=== PATIENT | male | born 1960 | race Caucasian/White ===

== ENCOUNTER 2017-04-01 14:22 | Inpatient (IN) | payer BC ==
[~2017-04-01] VITALS: Ht 177.8 cm; Wt 186.0 kg
[2017-04-01] VITALS (16 sets, daily range): BP systolic 69–168; BP diastolic 33–83
[~2017-04-01 14:22] MED LIST: ASPI81TA44 PO; CAMPHOR TP; CELE200C PO; FAMO-63 PO; FLUC200T PO; FURO-68 PO; GABA-586 PO; HYDR25CA PO; Hydrocodone Bit/Acetaminophen PO; INSU100I13 SQ; INSU100I17 SQ; LISI-338 PO; MENTHOL TP; METF-620 PO; Mineral Oil/Petrolatum,White TP; PRED5TAB19 PO; PROAIR HFA8.5 GM IH; SIMV80TA3 PO
[2017-04-01] MEDS ORDERED: NOREPINEPHRIN PREMIX 250 ML IV PRN (16:00)
[2017-04-01] MEDS ORDERED: METO2.5T PO (17:24)
[2017-04-01] MEDS ORDERED: GLUC100018 PO (17:24)
[2017-04-01] MEDS ORDERED: CHOL10003 PO (17:24)
[2017-04-01] MEDS ORDERED: SIMV20TA3 PO (17:24)
[2017-04-01] MEDS ORDERED: MULT-658 PO (17:24)
[2017-04-01] MEDS ORDERED: EMPA25TA PO (17:24)
[2017-04-01] MEDS ORDERED: FURO80TA72 PO (17:24)
[2017-04-01] MEDS ORDERED: INSU100I13 SQ (17:24)
[2017-04-01] MEDS ORDERED: VALS320T2 PO (17:24)
[2017-04-01] MEDS ORDERED: OMEG1CAP38 PO (17:24)
[2017-04-01] MEDS ORDERED: MILK175C PO (17:24)
[2017-04-01] MEDS ORDERED: CINN500C2 PO (17:24)
[2017-04-01] MEDS ORDERED: INSU100I17 SQ (17:25)
[2017-04-01] MEDS ORDERED: DEXTROSE 50% 25 GM / 50ML DISP.SYRIN. IV PRN (18:45)
--- NOTE | 2017-04-01 19:41 | HP ---
ADMIT DATE: 04/01/2017 CHIEF COMPLAINT: Confusion, presyncope, slurred speech. HISTORY OF PRESENT ILLNESS: The patient is a 56-year-old morbidly obese gentleman with diabetes, hypertension, and obstructive sleep apnea who presented to the Emergency Room at [facility] after having been found [place] the [facility] [place] with altered mental status. When he arrived in the Emergency Room, blood sugars were actually within normal, but he was found profoundly hypotensive. According to the , who is currently present at bedside, he typically works at night and sleeps on the days. 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 On arrival in the Emergency Room, he was obtunded, did answer to some questions. Further workup revealed a negative CT of the head, normal drug screen and normal electrolytes. He is hypertensive and his dose of losartan had been increased from 180 to 360 about a month ago. The patient is now transferred to the ICU for close monitoring, he requires Levophed at this time. PAST MEDICAL HISTORY: Hypertension; diabetes mellitus, insulin resistant; obstructive sleep apnea. FAMILY HISTORY: Positive for hypertension and heart disease. 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 Quit smoking 15 years ago. No alcohol or drugs. ALLERGIES: No known drug allergies. MEDICATIONS: MAR reviewed and reconciled with home medications. REVIEW OF SYSTEMS: Unable to obtain as the patient is currently fast asleep and very difficult to arouse. Story obtained from . PHYSICAL EXAMINATION: VITAL SIGNS: From today show a blood pressure of 84/42 at admission, pulse of 82, respiratory rate at 14. No fevers. GENERAL: This is a 56-year-old massively obese, gentleman, sleeping soundly, snoring. HEENT: Shows no scleral icterus. Oral mucosa is pink and moist. NECK: Supple, no lymphadenopathy noted. LUNGS: Fairly clear anteriorly. HEART: Regular rate and rhythm. ABDOMEN: Massively obese, soft, nontender. EXTREMITIES: Show 1+ pitting edema bilaterally in the lower extremities. SKIN: Warm, soft and dry without any rash. LABORATORY DATA: CBC with a WBC of 7.1, hemoglobin 13.7, platelets of 126. Differential essentially within normal limits. BUN and creatinine of 18 and 1.7. Essentially normal electrolytes with mildly decreased potassium at 3.4. LFTs within normal limits. Albumin at 3.3. RADIOGRAPHIC FINDINGS: CT of the head without any acute findings. Chest x-ray, no acute abnormality seen. ASSESSMENT AND PLAN: The patient is a 56-year-old gentleman with profound hypotension of unexplained etiology. With all lab tests and radiographic imaging being completely normal, the most likely etiology would be an overdose, probably unintentional of his blood pressure medications. We will hold blood pressure medication for now, continue all other meds. As his blood pressure initially was quite low, he was started on Levophed. We will monitor closely. Repeat kidney function in the morning. His mental status actually completely normalized on arrival at the hospital here. He now is drowsy, most likely secondary to sleep deprivation. Diabetes mellitus is borderline controlled. According to , most recent hemoglobin A1c was 7.8. He is clearly insulin resistant with high doses of Lantus as well as Humalog. We will continue the Lantus and write a high dose sliding scale for him. We will repeat hemoglobin A1c here. Obstructive sleep apnea has been diagnosed. Suspect significant obesity induced hypoventilation involved as well. His pulse ox here have dropped in the low to mid 80s on room air. He will be maintained on oxygen for now. According to , at home on room air at sleep, his pulse ox drops into the upper 80s typically. RELL BUCHANAN MD DR: UR/nts JOB#: [id number] / [id number] SARKIS Oglesby MD MTDD
[2017-04-01] MEDS ORDERED: SIMVASTATIN 20 MG TABLET PO SCH (21:00)
[2017-04-01] MEDS ORDERED: GLUCOSAMINE SULFATE 1500 MG PO SCH (21:00)
[2017-04-01] MEDS: OMEGA-3 FATTY ACIDS/FISH OIL 1,000 MG CAPSULE. PO SCH (21:08)
[2017-04-01] MEDS: GABAPENTIN 300 MG CAPSULE. PO SCH (21:08)
[2017-04-02] VITALS (11 sets, daily range): BP systolic 139–169; BP diastolic 56–92
--- NOTE | 2017-04-02 00:26 | ACF ---
Admission Forms Criteria GENERAL ADMISSION CRITERIA (Place 'X' for any and all applicable criteria): Admission is indicated for ANY ONE of the following: [ ]I. Hemodynamic instability as indicated by ANY ONE of the following(1)(2) (3)(4)(5): [ ]a) Vital sign abnormality not readily corrected by appropriate treatment within 12 to 24 hours indicated by ANY ONE of the following: [ ]i) Hypotension [ ]ii) Symptomatic Tachycardia unresponsive to treatment (eg , analgesia, fluids, sedation as indicated) [ ]iii) Orthostatic vital sign changes unresponsive to treatment (eg, fluids) [ ]b) Vital sign abnormality that is severe indicated by ANY ONE of the following: [ ]i) Inadequate perfusion indicated by ANY ONE of the following: [ ]1) Lactic acidosis (greater than 2 mmol/L) [ ]2) New abnormal capillary refill (greater than 3 seconds) [ ]3) Other metabolic acidosis (arterial pH less than 7.35) not otherwise explained [ ]4) Reduced urine output [ ]5) Altered mental status [ ]6) Myocardial Ischemia [ ]v) Mean arterial pressure[A] less than 60 mm Hg [ ]vi) Mean arterial pressure[A] less than 70 mm Hg after 30 minutes of appropriate treatment (eg, fluid resuscitation) [ ]vii) IV inotropic or vasopressor medication required to maintain adequate blood pressure or perfusion [ ]viii) Sustained heart rate greater than 120 beats per minute in adult or child 6 years or older[B]] [ ]II. Hypertension requiring inpatient treatment as indicated by ANY ONE of the following(6)(7)(8): [ ]a) SBP greater than 220 mm Hg or DBP greater than 120 mm Hg despite treatment [ ]b) SBP greater than 140 mm Hg or DBP greater than 100 mm Hg with evidence of acute end organ damage as indicated by ANY ONE of the following: [ ]i) Encephalopathy [ ]ii) Acute renal failure as indicated by new onset of ANY ONE of the following(9)(10)(11)(12)(13): [ ]1) A 3-fold rise in serum creatinine from baseline [ ]2) Serum creatinine greater than 4 mg/dL ( 354 micromoles/L) with acute rise greater than 0.5 mg/dL (44.2 micromoles/L) [ ]3) Reduction of more than 75% in estimated glomerular filtration rate from baseline [ ]4) Estimated glomerular filtration rate less than 35 mL/min/1.73m2 (0.59 mL/sec/1.73m2) in child up to 18 years of age [ ]5) Cessation of urine output indicated by ALL of the following: [ ]A. Adequate volume status [ ]B. Inadequate urine output as indicated by ANY ONE of the following: [ ]a. Urine output less than 0.3 mL/kg/hr for 24 hours [ ]b. Anuria (urine output less than 0.1 mL/kg/hr) for 12 hours [ ]iii) Aortic dissection [ ]iv) Myocardial ischemia [ ]v) Left ventricular heart failure [ ]vi) Retinal hemorrhage [ ]vii) Other significant finding [ ]c) Hypertension in child requiring inpatient treatment as indicated by ALL of the following(14)(15)(16): [ ]i) Outpatient treatment not effective, not available, or not appropriate [ ]ii) SBP or DBP greater than 95th percentile for age [ ]iii) Evidence of acute end organ damage as indicated by ANY ONE of the following: [ ]1) Altered mental status [ ]2) Acute renal failure as indicated by new onset of ANY ONE of the following(9)(10)(11)(12)(13): [ ]A. A 3-fold rise in serum creatinine from baseline [ ]B. Serum creatinine greater than 4 mg/dL (354 micromoles/L) with acute rise greater than 0.5 mg/dL (44.2 micromoles/L) [ ]C. Reduction of more than 75% in estimated glomerular filtration rate from baseline [ ]D. Estimated glomerular filtration rate less than 35 mL/min/1.73m2 (0.59 mL/sec/1.73m2)in child up to 18 years of age [ ]E. Cessation of urine output indicated by ALL of the following: [ ]a. Adequate volume status [ ]b. Inadequate urine output as indicated by ANY ONE of the following: [ ]1) Urine output less than 0.3 mL/kg/hr for 24 hours [ ]2) Anuria (urine output less than 0.1 mL/kg/hr) for 12 hours [ ]3) Severe headache [ ]4) Visual disturbance [ ]5) Retinal hemorrhage [ ]6) Other significant finding [ ]III. Acute cardiac or peripheral ischemia as indicated by ANY ONE of the following: [ ]a) Acute coronary syndrome(17)(18) [ ]b) Acute peripheral ischemia (eg, pulseless, cool, mottled, or cyanotic extremity)(19) [ ]IV. Cardiac arrhythmias or findings of immediate concern indicated by ANY ONE of the following(20)(21): [ ]a) Heart rhythms that are inherently dangerous or unstable indicated by ANY ONE of the following(22)(23)(24): [ ]i) Resuscitated ventricular fibrillation or cardiac arrest [ ]ii) Ventricular escape rhythm [ ]iii) Sustained ventricular tachycardia (30 seconds or more of ventricular rhythm at greater than 100 beats per minute) [ ]iv) Nonsustained ventricular tachycardia and ANY ONE of the following: [ ]1) Suspected cardiac ischemia as cause or consequence of ventricular tachycardia [ ]2) In setting of acute myocarditis [ ]b) Unstable cardiac conduction defects indicated by ANY ONE of the following(24)(25)(26): [ ]i) Type II second-degree atrioventricular block [ ]ii) Third-degree atrioventricular block [ ]iii) New-onset left bundle branch block with suspected myocardial ischemia [ ]c) Any heart rhythm and ANY ONE of the following(22)(23)(27)(28)( 29): [ ] i) Continuous long-term ECG monitoring needed (eg, initiation of drug requiring monitoring for more than 24 hours) [ ] ii) Patient has automatic implanted cardioverter defibrillator that is repeatedly firing, malfunctioning, or in need of immediate adjustment of settings beyond the scope of ambulatory or observation care. [ ]d) Heart rhythms of concern due to ANY ONE of the following: [ ]i) Hypotension [ ]ii) Respiratory distress [ ]iii) Association with other significant symptoms (eg, bradycardia with syncope or ongoing dizziness, supraventricular tachycardia with chest pain) (27)(28) (30) [ ] V. Severe heart failure as indicated by ANY ONE of the following ( 31)(32): [ ]a) Respiratory distress [ ]b) Hypotension [ ]c) Anasarca (refractory to outpatient therapy) [ ]d) Cardiac arrhythmias of immediate concern [ ]e) Myocardial ischemia [ ]. Respiratory abnormalities, including ANY ONE of the following(33)(34) (35)(36): [ ]a) Respiratory rate greater than 30 breaths per minute unresponsive to treatment [A] [ ]b) New saturation of arterial oxygen less than 90% [ ]c) New partial pressure of carbon dioxide greater than 44 mm Hg ( 5.9 kPa) [ ]d) Supplemental oxygen or respiratory treatments needed that are new or not performable at other levels of care [ ]e) New-onset cyanosis [ ]f) Inability to protect airway [ ]g) Chronic lung disease with severe deterioration (not responsive to emergency and observation care treatment as appropriate) as indicated by ANY ONE of the following(34)(36 ): [ ]i) SaO2 5% below baseline in patient with chronic hypoxemia [ ]ii) New requirement for supplemental oxygen to keep SaO2 at baseline or acceptable level [ ]iii) Required supplemental oxygen performable only in acute inpatient setting [ ]iv) Severe airflow or ventilation abnormalities [ ]v) Previously mobile patient unable to walk between rooms [ ]vi Inability to eat or sleep due to dyspnea [ ]vii) Rapid rate of exacerbation onset [ ]viii) Altered mental status ]VII. Severe airflow or ventilation abnormalities (not responsive to emergency and observation care treatment as appropriate) as indicated by ANY ONE of the following(33)(34)(35)(37): [ ]a) PCO2 greater than 42 mm Hg (5.6 kPa) and pH less than 7.35 (new ) [ ]b) Documented PCO2 increased more than 5 mm Hg (0.7 kPa) from disease baseline [ ]c) Airflow measurements [B] less than 60% of previous best or predicted (eg, peak expiratory flow rate less than 300 L/minute) despite intensive emergent treatment [C] [ ]d) Required respiratory treatments that are performable only in acute inpatient setting [ ]VIII. Impending or actual respiratory arrest ( Also use Respiratory Failure GRG for severe respiratory disease and long-term mechanical ventilation patients) [ ]IX. Neurologic abnormalities, including ANY ONE of the following: [ ]a) New findings that suggest ANY ONE of the following: [ ]i) [employer] infection(38) [ ]ii) Cerebral bleeding, ischemia, or vasospasm(39)(40) [ ]iii) Increased intracranial pressure, hydrocephalus, or cerebral edema(41)(42)(43) [ ]iv) Spinal cord injury(44) [ ]b) Uncontrolled seizures(45) [ ]c) New-onset coma (eg, Job coma scale score less than 9) or unexplained abnormal mental status (eg, Job coma scale score less than 14) [D](41)(46)(47) [ ]X. New-onset severe neurologic findings requiring inpatient care; examples include(42)(48)(49): [ ]a) Papilledema [ ]b) Cerebral edema [ ]c) Mass effect on CT scan [ ]XI. Suspected acute intra-abdominal process with peritoneal signs, abdominal mass, or similar findings (50)(51)(52) [ ]XII. Severe physiologic disorder remaining after emergency or observation level care (as appropriate) as indicated by ANY ONE of the following (53): [ ]a) Significant dehydration [ ]b) Diabetic ketoacidosis [ ]c) Hyperglycemic hyperosmolar state (eg, osmolality greater than 320 mOsm/kg (mmol/kg) [ ]d) Hypoglycemia [ ]e) Other (new) acid-base disorder with pH less than 7.35 or greater than 7.5(54) [ ]f) Thyroid storm (55) [ ]g) Myxedema coma (55) [ ]XIII. Abdominal abnormalities with ANY ONE of the following(56)(57): [ ]a) Absent bowel sounds with complete ileus [ ]b) Signs of intestinal obstruction or peritonitis [E] [ ]c) Nausea and vomiting that cannot be controlled with outpatient or observation care [ ]XIV. Acute renal failure as indicated by new onset of ANY ONE of the following(9)(10)(11)(12)(13): [ ]a) A 3-fold rise in serum creatinine from baseline [ ]b) Serum creatinine greater than 4 mg/dL (354 micromoles/L) with acute rise greater than 0.5 mg/dL (44.2 micromoles/L) [ ]c) Reduction of more than 75% in estimated glomerular filtration rate from baseline [ ]d) Estimated glomerular filtration rate less than 35 mL/min/ 1.73m2 (0.59 mL/sec/1.73m2) in child up to 18 years of age [ ]e) Cessation of urine output indicated by ALL of the following: [ ]i) Adequate volume status [ ]ii) Inadequate urine output as indicated by ANY ONE of the following: [ ]1) Urine output less than 0.3 mL/kg/hr for 24 hours [ ]2) Anuria (urine output less than 0.1 mL/kg/hr) for 12 hours [ ]XV. Significant uremic complications as indicated by ANY ONE of the following(58)(59)(60): [ ]a) Outpatient therapy is ineffective or not feasible for ANY ONE of the following: [ ]i) Severe heart failure [ ]ii) Severehypertension [ ]iii) Pleural effusion [ ]iv) Pericarditis or pericardial effusion [ ]b) Cardiac arrhythmias of immediate concern [ ]c) Intractable nausea or vomiting [ ]d) Recurrent seizures [ ]e) Encephalopathy [ ]f) Bleeding abnormalities (eg, platelet dysfunction) with active (eg, gastrointestinal) bleeding [ ]g) Dialysis indicated before long-term access or ambulatory arrangements can be made [ ]h) Significant metabolic or electrolyte abnormalities (eg, severe acidosis or hyperkalemia) [ ]XVI. High fever or other high-risk infection situation as indicated by ANY ONE of the following(61)(62)(63)(64): [ ]a) Outpatient and observation care antimicrobial treatment unavailable, not effective, or not appropriate [ ]b) Documented bacteremia [ ]c) Temperature greater than 40.5 degrees C (104.9 degrees F) ( oral) [ ]d) Temperature greater than 39.5 degrees C (103.1 degrees F) ( oral) or less than 36 degrees C (96.8 degrees F) (rectal) that does not respond to e treatment and observation care [ ] XVII. Temperature less than 95 degrees F (35 degrees C)(rectal)(65) [ ] XVIII. Severe nutritional abnormalities as indicated by ALL of the following (66)(67): [ ]a) Inability to tolerate or establish sufficient oral or other enteral nutrition in outpatient setting [ ]b) Parenteral nutrition regimen need that must be implemented on inpatient basis [ ] XIX. Severe electrolyte abnormalities indicated by ALL of the following(68) (69)(70): [ ]a) Electrolytes and associated findings are not as expected for patient baseline or acceptable treatment effects. [ ]b) Severe abnormalities indicated by ANY ONE of the following: [ ]i) Sodium less than 130 mEq/L (mmol/L) (new) [ ]ii)Sodium less than 135 mEq/L (mmol/L) with ANY ONE of the following: [ ]1) Uncorrectable (to near normal or chronic baseline) after trial of outpatient and emergency treatment [ ]2) Altered mental status [ ]3) Seizures [ ]4) Severe medical etiology requiring inpatient management (eg, heart failure, hypovolemia) [ ]iii) Sodium greater than 155 mEq/L (mmol/L) [ ]iv) Sodium greater than 150 mEq/L (mmol/L) with ANY ONE of the following: [ ]1) Uncorrectable (to near normal or chronic baseline) with outpatient and emergency treatment [ ]2) Altered mental status [ ]3) Seizures [ ]4) Severe medical etiology (eg, hypovolemia, diabetes insipidus) [ ]v) Potassium less than 2.5 mEq/L (mmol/L) despite outpatient and emergency treatment [ ]vi) Potassium less than 3 mEq/L (mmol/L) with ANY ONE of the following: [ ]1) Weakness [ ]2) Cardiac abnormality (eg, arrhythmia, conduction disturbance) [ ]3) Cardiac ischemia [ ]4) Ileus [ ]5) Ongoing medical cause requiring inpatient management (eg, acute renal wasting or SIADH) [ ]6) Other severe symptoms [ ]vii) Potassium greater than 6.5 mEq/L (mmol/L) [ ]viii) Potassium greater than 5 mEq/L (mmol/L) with ANY ONE of the following: [ ]1) Uncorrectable (to near normal or chronic baseline) with outpatient and emergency treatment [ ]2) Severe ECG findings [F] [ ]3) Acute worsening of renal failure (creatinine greater than 2.5 mg/dL (221 micromoles/L) or significant elevation for age and size) [ ]4) Severe weakness [ ]5) Severe medical etiology (eg, hemolysis, infection, drug overdose) [ ]ix) Calcium less than 7 mg/dL (1.75 mmol/L) despite outpatient and emergency treatment (72) [ ]x) Calcium less than 8 mg/dL (2 mmol/L) with significant symptoms or findings; examples include(72): [ ]1) Altered mental status [ ]2) Muscle spasms [ ]3) Seizures [ ]4) Breathing difficulty [ ]5) Cardiac abnormality (eg, arrhythmia or conduction disturbance) [ ]xi) Calcium greater than 14 mg/dL (3.5 mmol/L)(72) [ ]xii) Calcium greater than 12 mg/dL (3 mmol/L) with ANY ONE of the following(72): [ ]1) Uncorrectable (to near normal or chronic baseline) with outpatient and emergency treatment [ ]2) Significant dehydration or hypovolemia as indicated by ALL of the following(70)(73)(74): [ ]A. Not resolved with initial treatments [ ]B. Clinically significant dehydration as indicated by ANY ONE of the following: [ ]a. Vomiting refractory to outpatient treatment (ie, precluding oral rehydration) [ ]b. Inability to drink [ ]c. Hypernatremia or other electrolyte abnormality unable to be corrected with outpatient and emergency treatment [ ]d. Failure to remain hydrated with outpatient therapy [ ]e. Reduced urine output [ ]f. Hypotension [ ]g. Serious cause for dehydration requiring acute hospitalization (eg, bowel obstruction, increased intracranial pressure, infectious cause) [ ]h. Child with ANY ONE of the following(75): [ ]1) Severe abdominal tenderness [ ]2) Adequate care not available at home [ ]3) Severe dehydration ( greater than 9% loss of body weight) [ ]4) Significant symptoms or findings; examples include: [ ]A. Altered mental status [ ]B. Cardiac abnormality (eg, arrhythmia, conduction disturbance) [ ]C. Malignant etiology requiring inpatient treatment [ ]xiii) Phosphorus less than 1 mg/dL (0.32 mmol/L) [ ]xiv) Phosphorus less than 1.5 mg/dL (0.48 mmol/L) with ANY ONE of the following: [ ]1) Patient unresponsive to outpatient and emergency treatment [ ]2) Significant symptoms or findings; examples include: [ ]A. Weakness [ ]B. Altered mental status [ ]C. Breathing difficulty [ ]D. Seizures [ ]E. Rhabdomyolysis [ ]xv) Phosphorus greater than 10 mg/dL (3.2 mmol/L) [ ]xvi) Phosphorus greater than 4.5 mg/dL (1.45 mmol/L) (new) with ANY ONE of the following: [ ]1) Severe medical etiology (eg, crush injury, acute renal failure) [ ]2) Associated hypocalcemia with significant findings; examples include: [ ]A. Neurologic symptoms [ ]B. Altered mental status [ ]C. Muscle spasms [ ]D. Seizures [ ]E. Breathing difficulty [ ]F. Cardiac abnormality (eg, arrhythmia, conduction disturbance) [ ]xvii) Magnesium less than 1 mg/dL (0.41 mmol/L) [ ]xviii) Magnesium less than 1.5 mg/dL (0.62 mmol/L) with ANY ONE of the following: [ ]1) Patient unresponsive to outpatient and emergency treatment [ ]2) Associated hypocalcemia with significant findings; examples include: [ ]A. Altered mental status [ ]B. Muscle spasms [ ]C. Seizures [ ]D. Breathing difficulty [ ]E. Cardiac abnormality (eg, arrhythmia , conduction disturbance) [ ]3) Associated hypokalemia (potassium less than 3 mEq/L (mmol/L)) with risk of arrhythmia [ ]xix) Magnesium greater than 4 mEq/L (2 mmol/L) [ ]xx) Magnesium greater than 2.5 mEq/L (1.25 mmol/L) with significant symptoms or findings; examples include: [ ]1) Weakness [ ]2) Altered mental status [ ]3) Cardiac abnormality (eg, arrhythmia, conduction disturbance) [ ]4) Breathing difficulty [ ]5) Severe medical etiology (eg, renal failure, hypovolemia) [ ]xxi) Uric acid greater than 20 mg/dL (1190 micromoles/L)(76) [ ]xxii) Uric acid greater than 8 mg/dL (476 micromoles/L) with significant symptoms or findings of tumor lysis syndrome; examples include(76): [ ]1) Creatinine greater than 1.5 times upper limit of normal [ ]2) Cardiac abnormality (eg, arrhythmia, conduction disturbance) [ ]3) Seizure [ ]XX. Acute blood loss causing significant abnormality as indicated by ANY ONE of the following(77)(78): [ ]a) Hemoglobin less than 10 g/dL (100 g/L) (not baseline) [ ]b) Hematocrit less than 30% (0.30) (not baseline) [ ]c) Repeat hematocrit decreased more than 2% (0.02) [ ]d) Uncontrolled bleeding [ ]XXI. Severe anemia indicated by ANY ONE of the following(78)(79): [ ]a) Altered mental status [ ]b) Chest pain [ ]c) Exertional dyspnea [ ]d) Syncope [ ]e) Other findings suggesting inadequate perfusion [ ]f) Treatment with transfusion or volume replacement is ineffective at resolving ANY ONE of the following [G]: [ ]i) Tachycardia for age [ ]ii) Orthostatic vital sign changes as indicated by ANY ONE of the following(80): [ ]1) Fall in SBP of 20 mm Hg or more 1 to 3 minutes after patient sits or stands from recumbent position [ ]2) Fall in DBP of 10 mm Hg or more 1 to 3 minutes after patient sits or stands from recumbent position [ ]XXII. High-risk low platelet count as indicated by ANY ONE of the following( 81)(82): [ ]a) Severe or life-threatening bleeding (eg, intracranial, major gastrointestinal, or extensive mucosal bleeding), with any reduced platelet count [ ]b) Platelet count less than 20,000/mm3 (20 x109/L) with any active bleeding [ ]c) Platelet count less than 10,000/mm3 (10 x109/L) with minor purpura or petechiae [ ]d) Platelet count less than 5000/mm3 (5 x109/L) [ ]e) Low platelet count with hemolytic anemia [ ]XXIII. Disseminated intravascular coagulation(77)(83) [ ]XXIV. Severe adverse drug or systemic toxin reaction requiring inpatient treatment; examples include(84)(85): [ ]a) Serotonin syndrome(86) [ ]b) Neuroleptic malignant syndrome(86) [ ]c) Cholinergic syndrome with severe symptoms (eg, bronchorrhea, weakness, mental status changes, seizures) [ ]d) Sympathetic syndrome with severe symptoms (eg, seizures, mental status changes, cardiac dysrhythmias) [ ]e) Anticholinergic syndrome [ ]XXV. Severe pain requiring acute inpatient management as indicated by ALL of the following (87)(88)(89): [ ]a) Continuous or frequent (eg, every 2 to 4 hours) parenteral analgesics required [H] [ ]b) Rapid improvement expected from treatment or acute intervention (eg, surgery, anesthesia procedure) [ ]XXVI.Severe behavioral health issues judged unmanageable at a lower level of care (eg, residential) in a patient who is ANY ONE of the following(91) [ ]a) Acutely suicidal [ ]b) A danger to self (eg, self-mutilating or suicidal behavior) [ ]c) A danger to others (eg, assaultive or homicidal behavior) [ ]d) Incapacitated because of grave disability (eg, inability to provide for self at lower level of care) (92) [X]XXVII. Inpatient monitoring needed; examples include(1)(3)(87)(93)(94)(95)(96 ): [X]a) Vital signs, neurologic signs, or vascular checks more frequently than every 4 hours [ ]b) Cardiac or respiratory monitoring beyond the scope (eg, over 24 hours) of observation care [ ]c) Pulmonary artery catheter monitoring [ ]d) Suspected compartment syndrome(97) (98) [ ]e) Cerebral bleeding, hydrocephalus, or vasospasm monitoring [ ]f) Increased intracranial pressure or cerebral edema monitoring [ ]g) monitoring [ ]XXVIII. Treatment requiring inpatient care; examples include: [ ]a) IV fluid to replace significant ongoing losses (greater than 3 L/m2 per day)(53) [ ]b) High concentration oxygen (greater than 40%)(33)(99)(100) [ ]c) Frequent respiratory therapy (more frequently than every 4 hours) to maintain airflow rates greater than 60% of baseline(33)(99)(100) [ ]d) Epidural analgesia(87) [ ]e) IV anticoagulation, vasoactive, or antiarrhythmic medication(19 )(23) [ ]f) Acute thrombolytics (generally require 24 hours of observation )(101)(102) [ ]XXIX. Emergency procedures needed; examples include: [ ]a) Emergency inpatient surgery [ ]b) Temporary pacemaker placement(103) [ ]c) Chest tube placement with active evacuation (eg, suction, drainage)(104) [ ]d) Emergent cardioversion(105) [ ]e) Emergent cardiac or vascular procedures (eg, cardiac catheterization, angioplasty) (17)(18) [ ]f) Emergent dialysis access placement and institution(10)(106) [ ]g) Emergent pericardiocentesis(107) [ ]h) Emergent plasmapheresis or leukapheresis(83) [ ]i) Emergent tracheostomy The original [employer] content created by [employer] has been revised. The portions of the content which have been revised are identified through the use of italic text or in bold, and [facility] [employer] has neither reviewed nor approved the modified material. All other unmodified content is copyright [employer]. Please see references footnoted in the original [facility] edition 2016 Admission Criteria Met?: No RANGEL KLEIN Apr 02, 2017 00:26 RELL BUCHANAN MD Apr 02, 2017 15:59
[2017-04-02] MEDS ORDERED: ASPIRIN CHEWABLE 81 MG TABLET. PO SCH (08:00)
[2017-04-02] MEDS ORDERED: INSULIN ASPART 300 UNITS/3 ML INSULN.PEN SQ SCH (08:00)
[2017-04-02] MEDS: OMEGA-3 FATTY ACIDS/FISH OIL 1,000 MG CAPSULE. PO SCH (08:16)
[2017-04-02] MEDS: GABAPENTIN 300 MG CAPSULE. PO SCH (08:16)
[2017-04-02] MEDS ORDERED: MULTIVITAMIN with MINERAL TABLET. PO SCH (09:00)
[2017-04-02] MEDS ORDERED: INSULIN DETEMIR 300 UNITS/3 ML INSULN.PEN. SQ SCH (09:00)
[2017-04-02] MEDS ORDERED: CHOLECALCIFEROL (VITAMIN D3) 1,000 UNIT TABLET PO SCH (09:00)
[2017-04-02] MEDS ORDERED: metOLazone 2.5 MG TABLET PO SCH (09:00)
[2017-04-02] MEDS ORDERED: FUROSEMIDE 80 MG TABLET. PO SCH (09:00)
[2017-04-02] MEDS ORDERED: LOSARTAN POTASSIUM 50 MG TABLET. PO SCH (09:30)
[2017-04-02 09:35] LABS: BASO % 1 % (0-3); EOS % 4 % (0-3); HEMATOCRIT 41.5 % (39.0-53.0); HEMOGLOBIN 13.8 g/dL (13.0-17.5); LYMPH # 1.2 x10^3/uL (1.0-4.8); LYMPH % 23 % (24-48); MEAN CORPUSCULAR HEMOGLOBIN 29 pg (25-35); MEAN CORPUSCULAR HGB CONC 33 g/dL (31-37); MEAN CORPUSCULAR VOLUME 88 fL (79-100); MONO % 7 % (0-9); NEUT % 66 % (31-73); PLATELET COUNT 100 x10^3/uL (140-400); RED BLOOD COUNT 4.73 x10^6/uL (4.30-5.70); RED CELL DISTRIBUTION WIDTH 16.8 % (11.5-14.5); WHITE BLOOD COUNT 5.4 x10^3/uL (4.0-11.0)
[2017-04-02] MEDS ORDERED: VALS160T3 PO (09:39)
[2017-04-02 09:54] LABS: CALCIUM 8.2 mg/dL (8.5-10.1); CREATININE 1.1 mg/dL (0.7-1.3); GFR 69.2; POTASSIUM 4.4 mmol/L (3.5-5.1)
[2017-04-03] MEDS ORDERED: LOSARTAN POTASSIUM 50 MG TABLET. PO SCH (09:00)
== END 2017-04-02 10:20 | disposition home or self-care (01) | DRG 918 ==
LOC: 1 WEST ICU 15:37
PROVIDERS: ADMIT Internal Medicine Hematology & Oncology; ATTEND Internal Medicine Hematology & Oncology
DX: T50.901A Poisoning by unspecified drugs, medicaments and biological substances, accidental (unintentional), initial encounter (principal); I95.9 Hypotension, unspecified; E88.81 Metabolic syndrome and other insulin resistance; Z68.43 Body mass index [BMI] 50.0-59.9, adult; E66.01 Morbid (severe) obesity due to excess calories; Y92.89 Other specified places as the place of occurrence of the external cause; E11.9 Type 2 diabetes mellitus without complications; G47.33 Obstructive sleep apnea (adult) (pediatric); I10 Essential (primary) hypertension; Z82.49 Family history of ischemic heart disease and other diseases of the circulatory system; Z87.891 Personal history of nicotine dependence
CPT/HCPCS: 36415; 80048; 82962; 83605; 85025; 87641; J1815

== ENCOUNTER → 2018-07-06 | Outpatient (CLI) | payer BC, OTHER ==
[2017-04-02 09:15] VITALS: BP 140/67
[~2018-07-06] MED LIST changes: -ASPI81TA44 PO; +ASPI81TA59 PO; +CHOL10003 PO; +CINN500C2 PO; +EMPA25TA PO; +FURO80TA72 PO; -GABA-586 PO; +GABA300C18 PO; +GLUC100018 PO; -METF-620 PO; +METF10007 PO; +METO2.5T PO; +MILK175C4 PO; +MULT-658 PO; +OMEG1CAP38 PO; +SIMV20TA3 PO; +SIMV80TA17 PO; -SIMV80TA3 PO; +VALS160T3 PO; +VALS320T2 PO
--- NOTE | 2018-07-06 11:54 | CARD ---
MR#: [id number] Date of Study: 07/06/2018 Ordering Physician: ALMA ELDER, Referring Physician: ALMA ELDER Tech: Teresa Saravia RDCS APPROVED REPORT EXAM: Two-dimensional and M-mode echocardiogram with Doppler and color Doppler. Other Information Quality : Good INDICATION Murmur 2D DIMENSIONS RVDd3.2 (2.9-3.5cm)Left Atrium(2D)4.5 (1.6-4.0cm) IVSd1.2 (0.7-1.1cm)Aortic Root(2D)3.1 (2.0-3.7cm) LVDd5.4 (3.9-5.9cm)LVOT Diameter2.2 (1.8-2.4cm) PWd1.2 (0.7-1.1cm)LVDs3.6 (2.5-4.0cm) FS (%) 33.7 %SV89.1 ml LVEF(%)60.0 (>50%) Aortic Valve AoV Peak Dontrell.180.9cm/sAoV VTI31.3cm AO Peak GR.13.1mmHgLVOT Peak Dontrell.128.3cm/s LVOT VTI 23.26cmAO Mean GR.9mmHg YOU (VMAX)2.71aa4EXE (VTI)2.92cm2 Mitral Valve MV E Rymyxfgh49.4cm/sMV DECEL PPNB016zk MV A Mvzltmwu557.1cm/sMV BYO85uh E/A Ratio0.7MVA (PHT)3.23cm2 TDI E/Lateral E'8.7E/Medial E'14.0 Pulmonary Vein S1 Kveqeibl19.8cm/sD2 Mzfvdwxp74.3cm/s LEFT VENTRICLE The left ventricle is normal size. There is mild concentric left ventricular hypertrophy. The left ve ntricular systolic function is normal. The Ejection Fraction is 55-60%. There is normal LV segmental wall motion. Transmitral Doppler flow pattern is Grade I-abnormal relaxation pattern. RIGHT VENTRICLE The right ventricle is normal size. The right ventricular systolic function is normal. ATRIA The left atrium is mildly dilated. The right atrium size is normal. The interatrial septum is intact with no evidence for an atrial septal defect or patent foramen ovale as noted on 2-D or Doppler imagi ng. AORTIC VALVE The aortic valve is calcified but opens well. Doppler and Color Flow revealed no significant aortic r egurgitation. There is no significant aortic valvular stenosis. MITRAL VALVE The mitral valve is calcified but opens well. Mitral annular calcification is mild. There is no evide nce of mitral valve prolapse. There is no mitral valve stenosis. Doppler and Color-flow revealed trac e mitral regurgitation. TRICUSPID VALVE The tricuspid valve is normal in structure and function. Doppler and Color Flow revealed trace tricus pid regurgitation. There is no tricuspid valve stenosis. PULMONIC VALVE The pulmonic valve is not well visualized. Doppler and Color Flow revealed no pulmonic valvular regur gitation. There is no pulmonic valvular stenosis. GREAT VESSELS The aortic root is normal in size. The ascending aorta is normal in size. The IVC was not visualized. PERICARDIAL EFFUSION There is no evidence of significant pericardial effusion. Critical Notification Critical Value: No <Conclusion> The left ventricular systolic function is normal. The Ejection Fraction is 55-60%. There is normal LV segmental wall motion. Transmitral Doppler flow pattern is Grade I-abnormal relaxation pattern. The left atrium is mildly dilated. Trace mitral regurgitation. Trace tricuspid regurgitation. There is no evidence of significant pericardial effusion. Signed by : Nate Miller, Electronically Approved : 07/06/2018 11:52:46
== END | disposition home or self-care (01) ==
LOC: ECHO 09:36
PROVIDERS: ATTEND Nurse Practitioner Gerontology
DX: I25.10 Atherosclerotic heart disease of native coronary artery without angina pectoris (principal); I51.7 Cardiomegaly
CPT/HCPCS: 93306

== ENCOUNTER → 2018-10-26 | Outpatient (CLI) | payer OTHER ==
[2017-04-02 09:15] VITALS: BP 140/67
[~2018-10-26] MED LIST changes: +ALBU2.5V8 IH; -PROAIR HFA8.5 GM IH
--- NOTE | 2018-10-26 09:20 | RAD ---
EXAM: Chest, 2 views. HISTORY: COPD. COMPARISON: 02/02/2015 FINDINGS: 2 views the chest are obtained. There is no infiltrate, pleural effusion or pneumothorax. There are coarse likely chronic interstitial markings. There is slight hyperinflation due to inspiratory effort or emphysema. IMPRESSION: No acute pulmonary finding. Electronically signed by: Gisselle Singh MD (10/26/2018 9:18 AM) [place] [id number]
== END | disposition home or self-care (01) ==
LOC: PF 07:51
PROVIDERS: ATTEND Surgery
DX: J44.9 Chronic obstructive pulmonary disease, unspecified (principal)
CPT/HCPCS: 71046; 94010; 94729

== ENCOUNTER → 2019-05-09 | Outpatient (CLI) | payer OTHER ==
[2017-04-02 09:15] VITALS: BP 140/67
--- NOTE | 2019-05-09 14:49 | PAIN ---
DATE OF SERVICE: 05/09/2019 INITIAL CONSULTATION FOR PAIN CLINIC CHIEF COMPLAINT: Bilateral foot pain. HISTORY OF PRESENT ILLNESS: This is a 58-year-old male who presents with history of pain in the bilateral feet for many years. The patient reports it is worse over the past year or so with walking and standing, putting weight on the base of his feet and in the plantar surface of the forefoot, especially patient reports he has peripheral neuropathy from diabetes and does indeed have some decreased sensation to the sharp and dull in the feet as well as some in the arms and hands, mostly in the feet. Feet are painful to touch, waking up from sleep at least 1 to 3 times a night, worse with walking and standing; however, his main complaint with weightbearing. The patient reports it does not affect his bowel or bladder control but does affect his ability to walk significantly, he is not using any assistive devices, however. The patient has had chiropractic treatment with his feet, which has helped as well as seeing a punch press feeder, which he reports has some insoles being made for him currently, but does not have them yet for his shoes. The patient is also taking duloxetine, gabapentin and Tylenol, all of which do help to some extent but he only takes gabapentin at night as it makes him very sleepy. The patient reports the pain is sharp and stabbing in the feet, intermittent in intensity, worse with weightbearing, better with sitting or lying down, but again awakens him from sleep at night with burning sensation in the feet as well. The patient rates his disability rating from 0-10, 10 being the worst, is a 9 with family and home responsibilities and social activity, 10 with recreation and occupational activities, 3 with self-care and 1 with life support activities. PAST MEDICAL HISTORY: Significant for hearing loss, diabetes type 2, shortness of breath, hypertension, sleep apnea, obesity, dizziness and arthritis. PREVIOUS SURGERY: Includes lumbar surgery with fusion, knee surgery x 3 in the left and bilateral foot surgery for neuroma excisions. CURRENT MEDICATIONS: Include valsartan, daily baby aspirin, metformin, gabapentin, metolazone, Lasix, Jardiance, glucosamine, milk thistle, omega 3, NovoLog insulin FlexPen, vitamin D, Centrum, simvastatin and cinnamon bark. ALLERGIES: The patient has no known drug allergies. FAMILY HISTORY: Significant for diabetes and arthritis. SOCIAL HISTORY: The patient drinks alcohol 1-2 drinks a week on average. Does not smoke. Does not use any illegal, illicit or recreational drugs. He is , lives with his spouse, and lives locally in [place], [place]. REVIEW OF SYSTEMS: The patient's review of systems is positive for those items mentioned in history of present illness. All systems reviewed and otherwise negative. It is complete, full and well documented on the patient's chart. PHYSICAL EXAMINATION: VITAL SIGNS: The patient's blood pressure 130/79, pulse 93, respirations 20, temperature 98.3 degrees Fahrenheit, height is 5 feet 10 inches, weight is 399 pounds. GENERAL: The patient is awake, alert, oriented, appropriate, very pleasant demeanor. HEENT: Exam shows normocephalic, atraumatic. Extraocular movements are intact and symmetrical. The patient is wearing eyeglasses. Oral cavity: Mucous membranes moist and pink. Dentition is intact. NECK: Shows anterior throat supple without palpable lymphadenopathy noted. Swallow reflex is symmetrical. CHEST: Shows normal on inspection. Breath sounds are clear bilaterally. HEART: Shows S1, S2 clear. ABDOMEN: Obese, soft, nontender, nondistended. No palpable organomegaly is noted. No rebound or guarding demonstrated. BACK: Shows spine grossly in the midline. Normal-appearing thoracic kyphosis, some minor flattening of lumbar lordotic curvature. Lumbar paraspinous muscle shows symmetrical with palpation. Well-healed surgical scars noted in the midline. Some mild tenderness diffusely throughout the upper, middle and lower distribution of paraspinous muscles, but only diffusely without radiation. EXTREMITIES: The patient's lower extremities show deep tendon reflexes 1+ patellar and tendo calcaneus tendons are equal. Motor exam is strong with 5/5 dorsiflexion, extension, quadriceps and hamstring flexion. The patient's feet show significant decrease in sharp, dull discrimination in a stocking distribution in the bilateral feet on the anterior and posterior surfaces. There is some protruding area of the mid metatarsal heads on both feet, which is tender to palpation. No specific tenderness over the heel; however, bilaterally. Peripheral pulses are 1+ posterior tibial. There is approximately 1+ pitting edema in the bilateral ankles, but only extending about 10 cm above the ankle and the malleoli bilaterally. The patient is able to stand, has difficulty trying to stand on his toes and loses balance easily, and reports increased pain in the base of the foot, walks with a slight widen stance, gait does not appear to favor the right or left lower extremity significantly. SKIN: Shows warm and dry, good turgor. No edema. No sores, rashes or bruising throughout. IMPRESSION: 1. This is a 58-year-old male with a history of bilateral foot pain for several years, worse over the past 1 year. 2. Obesity. 3. Diabetes. 4. Hypertension. 5. Arthritis. PLAN: Options were discussed with the patient including conservative medical management, physical therapies, interventional techniques and he would like to pursue conservative management. We discussed physical therapy with pool therapy for the feet as well as for some ability for weight loss as voices a concern to lose some weight. We will set up some pool therapy for the patient for both of these goals. Also increase the patient's gabapentin to 900 mg at bedtime to see if this may decrease some of the peripheral neuropathic pain. The patient was given instruction as well as side effects to be aware of with the medication and we will follow up in approximately 3 weeks as scheduled appointment. SUSU ARCHIBALD MD DR: RAFAELA/jt JOB#: [id number] / [id number] JEFFREY Alexandra MD
== END ==
LOC: PNCL 10:03
PROVIDERS: ATTEND Anesthesiology
DX: M79.671 Pain in right foot (principal); M79.672 Pain in left foot; E66.9 Obesity, unspecified; I10 Essential (primary) hypertension; E11.9 Type 2 diabetes mellitus without complications; M19.90 Unspecified osteoarthritis, unspecified site; Z68.42 Body mass index [BMI] 45.0-49.9, adult
CPT/HCPCS: G0463

== ENCOUNTER → 2019-05-24 | Outpatient (CLI) | payer OTHER ==
[2017-04-02 09:15] VITALS: BP 140/67
[2019-05-24 09:29] LABS: BASO # 0.1 x10^3/uL (0.0-0.2); BASO % 1 % (0-3); EOS # 0.2 x10^3/uL (0.0-0.7); EOS % 3 % (0-3); HEMATOCRIT 47.1 % (39.0-53.0); HEMOGLOBIN 15.6 g/dL (13.0-17.5); LYMPH # 1.4 x10^3/uL (1.0-4.8); LYMPH % 23 % (24-48); MEAN CORPUSCULAR HEMOGLOBIN 30 pg (25-35); MEAN CORPUSCULAR HGB CONC 33 g/dL (31-37); MEAN CORPUSCULAR VOLUME 90 fL (79-100); MONO # 0.5 x10^3/uL (0.0-1.1); MONO % 8 % (0-9); NEUT # 3.8 x10^3/uL (1.8-7.7); NEUT % 65 % (31-73); PLATELET COUNT 121 x10^3/uL (140-400); RED BLOOD COUNT 5.26 x10^6/uL (4.30-5.70); RED CELL DISTRIBUTION WIDTH 15.3 % (11.5-14.5); WHITE BLOOD COUNT 5.9 x10^3/uL (4.0-11.0)
[2019-05-24 09:30] LABS: BILIRUBIN,URINE NEGATIVE (NEG); CLARITY,URINE CLEAR; COLOR,URINE YELLOW; NITRITE,URINE NEGATIVE (NEG); PROTEIN,URINE NEGATIVE (NEG-TRACE)
[2019-05-24 09:48] LABS: ALBUMIN 3.7 g/dL (3.4-5.0); ALBUMIN/GLOBULIN RATIO 0.9 (1.0-1.7); CALCIUM 8.7 mg/dL (8.5-10.1); CREATININE 0.8 mg/dL (0.7-1.3); GFR 99.3; TOTAL BILIRUBIN 0.8 mg/dL (0.2-1.0); TOTAL PROTEIN 7.6 g/dL (6.4-8.2)
[2019-05-24 10:09] LABS: BACTERIA,URINE 0 /HPF (0-FEW); RBC,URINE OCC /HPF (0-2); WBC,URINE OCC /HPF (0-4)
[2019-05-24 17:09] LABS: CREAT RD UR 82.7 mg/dL (Not Estab.); MICRO CREAT RATIO 18.4 mg/g creat (0.0-30.0); MICROALB RD UR 15.2 ug/mL (Not Estab.)
[2019-05-24 23:07] LABS: HEMOGLOBIN A1C 8.4 % (4.8-5.6)
== END | disposition home or self-care (01) ==
LOC: LAB 08:57
PROVIDERS: ATTEND Internal Medicine
DX: Z12.5 Encounter for screening for malignant neoplasm of prostate (principal); Z00.00 Encounter for general adult medical examination without abnormal findings; E11.40 Type 2 diabetes mellitus with diabetic neuropathy, unspecified
CPT/HCPCS: 36415; 80053; 80061; 81001; 82043; 82570; 83036; 84443; 85025; G0103

== ENCOUNTER → 2019-08-31 | Outpatient (CLI) | payer OTHER ==
[2017-04-02 09:15] VITALS: BP 140/67
[~2019-08-31] MED LIST changes: +SIMV20TA18 PO; -SIMV20TA3 PO
--- NOTE | 2019-08-31 13:26 | PAIN ---
DATE OF SERVICE: 08/31/2019 PROGRESS NOTE FOR PAIN CLINIC DIAGNOSES: Diabetic polyneuropathy. HISTORY OF PRESENT ILLNESS: The patient is a 59-year-old male who returns for followup status post initial evaluation and physical therapy. The patient had water therapy, but is not obtained any weight loss to date more about 5 pounds. The patient reports still significant pain in both the feet in the soles of the feet and in the balls of the feet with walking, standing, changing positions, awakens him from sleep multiple times throughout the night. The patient rates it at 10-12 on a scale of 10, at its worst is 9, on average at 3 and at its least is at 9 today. The patient reports it is aching, sharp, dull, tight, shooting, tingling, burning, stabbing, becoming severe and unbearable at times, especially with weightbearing. The patient reports the side of the arches ache as well as the bottom of the feet with any weightbearing and even without weightbearing. The patient reports he has increased his gabapentin as we recommended back in May when I saw him last to 900 mg at bedtime, but is not making much difference. The patient reports no new motor or sensory deficits or other complaints. PHYSICAL EXAMINATION: VITAL SIGNS: The patient's blood pressure 145/75, pulse 109, respirations 20, temperature 98.7 degrees Fahrenheit, height is 5 feet 10 inches and weight is 394 pounds. GENERAL: The patient is awake, alert, oriented, appropriate, very pleasant demeanor. HEENT: Head shows normocephalic, atraumatic. The patient wears eyeglasses. Extraocular movements are intact and symmetrical. Oral cavity: Mucous membranes moist and pink. NECK: Shows anterior throat supple. CHEST: Shows normal on inspection. Breath sounds are clear bilaterally. HEART: Shows S1, S2 clear. ABDOMEN: Obese, soft, nontender, nondistended. BACK: Shows spine grossly in the midline, normal-appearing cervical lordotic curvature, thoracic kyphotic curvature slightly increased and some flattening of lumbar lordotic curvature with well-healed surgical scarring noted. Lumbar paraspinous muscle shows symmetrical on inspection, with palpation shows some moderate tenderness diffusely in the low lumbar distribution. EXTREMITIES: The patient's lower extremities show deep tendon reflexes at 2+ in the patellar, 1+ tendo-calcaneus tendons. Motor exam is 5/5 with dorsiflexion and extension. The patient has approximately 1+ pitting edema in the bilateral ankles to two-third distance to the knee on the anterior tibia. The patient has decreased sharp and dull discrimination once again in a stocking distribution on the bilateral feet to just superior to the malleoli on both ankles. Peripheral pulses are 1+ posterior tibial. IMPRESSION AND PLAN: Options were discussed with the patient. The patient's old chart was reviewed as her current medication regimen updated. Current review of systems updated today as well. We discussed options with the patient including lumbar epidural steroid injection, topical anesthetics and oral medications. We will try lidocaine ointment to be done up to 3 times daily for the feet. We will maintain the increased level of gabapentin at this time. Also encourage the patient to work on weight loss significantly. The patient acknowledges this. The patient will be given prescription for lidocaine 5% ointment for the feet 3 times daily. Also, samples of Andrez prednisone 5 mg taken at bedtime. The patient was given samples as well as instructions and side effects to be aware of each of the medications. The patient will follow up in approximately 4 weeks or as necessary. SUSU ARCHIBALD MD DR: RAFAELA/jt JOB#: [id number] / [id number]
== END | disposition home or self-care (01) ==
LOC: PNCL 11:14
PROVIDERS: ATTEND Anesthesiology
DX: E11.42 Type 2 diabetes mellitus with diabetic polyneuropathy (principal); E66.9 Obesity, unspecified
CPT/HCPCS: G0463

== ENCOUNTER → 2020-03-26 | Outpatient (CLI) | payer OTHER ==
[2017-04-02 09:15] VITALS: BP 140/67
[2020-03-26 09:35] LABS: ALBUMIN 3.5 g/dL (3.4-5.0); ALBUMIN/GLOBULIN RATIO 0.8 (1.0-1.7); CREATININE 0.9 mg/dL (0.7-1.3); GFR 86.4; POTASSIUM 3.9 mmol/L (3.5-5.1); TOTAL BILIRUBIN 0.7 mg/dL (0.2-1.0)
[2020-03-26 09:39] LABS: CHOLESTEROL/HDL RATIO 3.5
[2020-03-27 01:09] LABS: HEMOGLOBIN A1C 9.3 % (4.8-5.6)
== END | disposition home or self-care (01) ==
LOC: LAB 08:52
PROVIDERS: ATTEND Internal Medicine
DX: E11.9 Type 2 diabetes mellitus without complications (principal)
CPT/HCPCS: 36415; 80053; 80061; 83036

== ENCOUNTER → 2020-09-10 | Outpatient (CLI) | payer OTHER ==
[2017-04-02 09:15] VITALS: BP 140/67
[~2020-09-10] MED LIST changes: +GABA800T5 PO; -LISI-338 PO; +LISI-517 PO
--- NOTE | 2020-09-10 10:34 | PDOC ---
Progress Note - Pain Clinic Date of Service: DOS: DATE: 09/10/20 TIME: 10:29 Diagnosis: Dx: Diabetic polyneuropathy History or Present Illness: HPI: 60-year-old male returns in follow-up status post medication management for polyneuropathy last seen August 31, 2019. We had increased his gabapentin 900 mg nightly also have him taking lidocaine ointment 5% to the feet and samples of Nadrez were given for the patient to try. Patient reports no significant decrease in pain with the Andrez. Patient still reports significant pain in the feet in the medial aspect of the feet bilaterally as well as both of the hands and fingers especially the thumb and first fingers of both hands with any motion or use of the upper extremities. Patient reports doing well with the gabapentin at night as he is getting good sleep with it but during the day the pain is significantly increased in the feet. Patient reports his pain is a worse as a 11 on scale 10 over the past week 8 on average to its least and date. Patient reports no new motor or sensory deficits no new bowel or bladder incontinence or other complaints or other side effects with medication besides drowsiness. Physical Exam: VS: Blood pressure is 187/92 pulse 105 respirations 18 temperature 98.3 F 5 feet 10 inches weight is 406 pounds PE: PHYSICAL EXAMINATION: GENERAL: The patient is awake, alert, oriented, appropriate, very pleasant demeanor HEENT: Shows normocephalic, atraumatic. Extraocular movements are intact and symmetrical. Patient wearing eyeglasses NECK: Shows anterior throat supple without palpable lymphadenopathy noted. Swallow reflex symmetrical. CHEST: Shows normal on inspection. Breath sounds are clear bilaterally. HEART: Shows S1, S2 clear. No murmurs auscultated. ABDOMEN: Soft, nontender, nondistended, obese. No palpable organomegaly is noted. BACK: Shows spine grossly in the midline. Normal-appearing cervical lordotic curvature. There is increased thoracic kyphosis, some flattening of the lumbar lordotic curvature. Lumbar paraspinous muscles show symmetrical on inspection, on palpation shows some moderate tenderness diffusely throughout the upper, middle and lower distribution of the paraspinous muscles without specific trigger points, without radiation of pain. The patient has good rotational motion of the lumbar spine, both laterally as well as extension and flexion without significant difficulty. No tenderness over the spinous processes, sacrum or sacroiliac regions. EXTREMITIES: Lower extremities show deep tendon reflexes 2+ in the patellar and tendo calcaneus tendons. Motor exam is 5 on a scale of 5 with right dorsiflexion, extension, quadriceps and hamstring flexion and 5/5 on the left. Peripheral pulses are 1+ posterior tibial. Lower extremities are warm and dry to touch, equal in color and appearance. Patient's feet show significant decrease in discrimination between sharp and dull throughout the feet in a stocking distribution. Hands show similar distribution but mostly in the thumb and first finger on the posterior aspect of the hand and not as significantly decreased discrimination in the palmar aspect. SKIN: Shows warm and dry, good turgor. No edema. No sores, rashes or bruising throughout. Procedure: Procedure: Options were discussed with the patient. Patient's old chart reviews his current medication regimen updated current review of systems updated today as well. We will increase gabapentin to 300 mg q. a.m. and afternoon and maintain 900 mg nightly. Patient also was given Voltaren gel to use for the hands as he does have some significant arthritic component with the joints in the first and second fingers on both hands. Patient given instructions well side effects aware with each of the medications and will follow-up in approximate 1 month as scheduled. Medication Injected: Med Injected: None Condition at Discharge: Condition at Discharge: Condition at discharge is stable. SUSU ARCHIBALD MD Sep 10, 2020 10:34
== END | disposition home or self-care (01) ==
LOC: PNCL 09:26
PROVIDERS: ATTEND Anesthesiology
DX: E11.42 Type 2 diabetes mellitus with diabetic polyneuropathy (principal); I10 Essential (primary) hypertension; E78.00 Pure hypercholesterolemia, unspecified; K21.9 Gastro-esophageal reflux disease without esophagitis; M19.90 Unspecified osteoarthritis, unspecified site; Z79.899 Other long term (current) drug therapy; Z79.82 Long term (current) use of aspirin; Z79.84 Long term (current) use of oral hypoglycemic drugs; Z98.890 Other specified postprocedural states; Z87.891 Personal history of nicotine dependence; Z82.49 Family history of ischemic heart disease and other diseases of the circulatory system; Z83.3 Family history of diabetes mellitus
CPT/HCPCS: 99212; G0463

== ENCOUNTER → 2020-11-11 | Outpatient (CLI) | payer OTHER ==
[2017-04-02 09:15] VITALS: BP 140/67
[2020-11-11 08:20] LABS: BASO # 0.1 x10^3/uL (0.0-0.2); BASO % 1 % (0-3); EOS # 0.2 x10^3/uL (0.0-0.7); EOS % 3 % (0-3); HEMATOCRIT 41.7 % (39.0-53.0); HEMOGLOBIN 13.8 g/dL (13.0-17.5); LYMPH # 1.4 x10^3/uL (1.0-4.8); LYMPH % 19 % (24-48); MEAN CORPUSCULAR HEMOGLOBIN 27 pg (25-35); MEAN CORPUSCULAR HGB CONC 33 g/dL (31-37); MEAN CORPUSCULAR VOLUME 83 fL (79-100); MONO # 0.5 x10^3/uL (0.0-1.1); MONO % 7 % (0-9); NEUT # 5.3 x10^3/uL (1.8-7.7); NEUT % 71 % (31-73); PLATELET COUNT 130 x10^3/uL (140-400); RED BLOOD COUNT 5.04 x10^6/uL (4.30-5.70); RED CELL DISTRIBUTION WIDTH 17.6 % (11.5-14.5); WHITE BLOOD COUNT 7.4 x10^3/uL (4.0-11.0)
[2020-11-11 08:44] LABS: BILIRUBIN,URINE NEGATIVE (NEG); CLARITY,URINE CLEAR; COLOR,URINE YELLOW; NITRITE,URINE NEGATIVE (NEG); PROTEIN,URINE NEGATIVE (NEG-TRACE)
[2020-11-11 08:53] LABS: BACTERIA,URINE 0 /HPF (0-FEW); RBC,URINE 0 /HPF (0-2)
--- NOTE | 2020-11-11 08:56 | RAD ---
XR CHEST 2V History: Reason: BRONCHITIS/LOWER RIGHT SIDE PAIN X 10 DAYS / Spl. Instructions: / History: Comparison: October 26, 2018 Findings: No consolidation or pleural effusion. Normal heart size. No pneumothorax. Impression: 1. No acute cardiopulmonary process. Electronically signed by: Ben Timmons DO (11/11/2020 8:54 AM) [id number]
[2020-11-11 10:00] LABS: ALBUMIN 3.5 g/dL (3.4-5.0); ALBUMIN/GLOBULIN RATIO 0.8 (1.0-1.7); CREATININE 0.8 mg/dL (0.7-1.3); GFR 98.6; POTASSIUM 4.5 mmol/L (3.5-5.1); TOTAL BILIRUBIN 0.6 mg/dL (0.2-1.0); TOTAL PROTEIN 7.9 g/dL (6.4-8.2)
[2020-11-11 10:02] LABS: CHOLESTEROL/HDL RATIO 3.1
[2020-11-11 13:10] LABS: CREAT RD UR 103.8 mg/dL (Not Estab.); MICROALB RD UR 15.3 ug/mL (Not Estab.)
[2020-11-11 23:16] LABS: HEMOGLOBIN A1C 9.2 % (4.8-5.6)
== END ==
LOC: RAD 07:52
PROVIDERS: ATTEND Internal Medicine
DX: Z12.5 Encounter for screening for malignant neoplasm of prostate (principal); E11.9 Type 2 diabetes mellitus without complications; I10 Essential (primary) hypertension; R97.20 Elevated prostate specific antigen [PSA]
CPT/HCPCS: 71046; 80053; 80061; 81001; 82043; 82570; 83036; 84153; 84443; 85025; G0103

== ENCOUNTER → 2020-12-09 | Outpatient (CLI) | payer OTHER ==
[2017-04-02 09:15] VITALS: BP 140/67
--- NOTE | 2020-12-09 10:40 | RAD ---
CT THORAX WO History: Right-sided chest pain. Comparison: CT abdomen and pelvis 03/19/2014 Technique: Noncontrast CT of the chest. Findings: Assessment is limited by lack of IV contrast. Aorta and great vessels: No aneurysm of the aortic arch or thoracic aorta is seen. Mild origin of the great vessels atherosclerotic calcification. Thyroid: No significant abnormalities. Mediastinum and gina: Enlarged right lower pretracheal lymph node measures 1.0 cm short axis (axial i mage 21). Esophagus: The visualized esophagus is normal. Heart: The heart is normal in size. There is no pericardial effusion. Heavy mitral valve and coronary artery calcification. Trachea: The visualized tracheobronchial tree is normal. Lungs: No airspace consolidation. A few tiny pulmonary nodules are identified, for example 3 mm in th e right lower lobe lateral costophrenic recess (axial 52). Pleural space: There is no pneumothorax or pleural effusion. Upper abdomen: Nodular hepatic contour. Gallbladder neck stones. Osseous structures and soft tissues: Moderate gynecomastia. No acute osseous abnormality. Impression: 1. Nodular hepatic contour concerning for cirrhosis. 2. Few tiny pulmonary nodules measuring up to 3 mm. In a high-risk patient, optional CT in 12 months to evaluate for stability. 3. Heavy mitral valve and coronary artery calcification. 4. Cholelithiasis. ------ Exposure: One or more of the following individualized dose reduction techniques were utilized for thi s examination: 1. Automated exposure control 2. Adjustment of the mA and/or kV according to patient size 3. Use of iterative reconstruction technique. Electronically signed by: Carmelo Rolle MD (12/09/2020 10:38 AM) [facility]
== END ==
LOC: CT 09:10
PROVIDERS: ATTEND Internal Medicine
DX: R91.1 Solitary pulmonary nodule (principal); I34.0 Nonrheumatic mitral (valve) insufficiency; K80.20 Calculus of gallbladder without cholecystitis without obstruction; I25.10 Atherosclerotic heart disease of native coronary artery without angina pectoris
CPT/HCPCS: 71250

== ENCOUNTER → 2021-01-13 | Outpatient (CLI) | payer OTHER ==
[2017-04-02 09:15] VITALS: BP 140/67
--- NOTE | 2021-01-13 16:55 | CARD ---
MR#: [id number] Date of Study: 01/13/2021 Ordering Physician: CHARLES DUNCAN, Referring Physician: CHARLES DUNCAN, Tech: Manolo Padron [facility] APPROVED REPORT EXAM: Two-dimensional and M-mode echocardiogram with Doppler and color Doppler. Other Information Quality : AverageHR: 96bpm Rhythm : NSR INDICATION Chest Pain RISK FACTORS Obesity 2D DIMENSIONS Left Atrium(2D)5.0 (1.6-4.0cm)IVSd1.5 (0.7-1.1cm) Aortic Root(2D)3.4 (2.0-3.7cm)LVDd5.1 (3.9-5.9cm) LVOT Diameter2.2 (1.8-2.4cm)PWd1.3 (0.7-1.1cm) LVDs2.4 (2.5-4.0cm)FS (%) 52.6 % SV104.5 ml Aortic Valve AoV Peak Dontrell.256.1cm/sAoV VTI52.9cm AO Peak GR.26.2mmHgLVOT Peak Dontrell.188.8cm/s AO Mean GR.19mmHgAVA (VMAX)2.89cm2 Mitral Valve MV E Sjlccwzj238.7cm/sMV E Peak Gr.13mmHg MV DECEL [id number] A Guhiefsn662.9cm/s MV E Mean Gr.5mmHgE/A Ratio0.7 Pulmonary Valve PV Peak Bqwfttjn421.0cm/s Tricuspid Valve TR P. Hkpaehep919wj/sTR Peak Gr.24mmHg Pulmonary Vein S1 Orkusrmn84.8cm/sD2 Nfpaaonf87.8cm/s PVa [id number] LEFT VENTRICLE The left ventricle is normal size. There is mild to moderate concentric left ventricular hypertrophy. The left ventricular systolic function is hyperdynamic with an estimated ejection fraction of > 65%. There is normal LV segmental wall motion. Tissue Doppler imaging reveals abnormal left ventricular d iastolic dysfunction. No left ventricle thrombus noted on this study. RIGHT VENTRICLE The right ventricle is normal size. There is normal right ventricular wall thickness. The right ventr icular systolic function is normal. ATRIA The left atrium is mild to moderately dilated. The right atrium size is normal. AORTIC VALVE The aortic valve is normal in structure and function. Doppler and Color Flow revealed no significant aortic regurgitation. There is no significant aortic valvular stenosis. MITRAL VALVE Mitral annular calcification is mild. There is no evidence of mitral valve prolapse. There is no mitr al valve stenosis. Doppler and Color-flow revealed trace mitral regurgitation. TRICUSPID VALVE The tricuspid valve is normal in structure and function. Doppler and Color Flow revealed trace tricus pid regurgitation. There is no tricuspid valve prolapse or vegetation. There is no tricuspid valve st enosis. PULMONIC VALVE The pulmonary valve is normal in structure and function. Doppler and Color Flow revealed no pulmonic valvular regurgitation. There is no pulmonic valvular stenosis. GREAT VESSELS The aortic root is normal in size. The pulmonary artery is normal. The IVC is normal in size and devonte apses >50% with inspiration. PERICARDIAL EFFUSION There is no pleural effusion. There is no evidence of significant pericardial effusion. Critical Notification Critical Value: No <Conclusion> The left ventricle is normal size. The left ventricular systolic function is hyperdynamic with an estimated ejection fraction of > 65%. There is mild to moderate concentric left ventricular hypertrophy. Doppler and Color Flow revealed no significant aortic regurgitation. There is no significant aortic valvular stenosis. Doppler and Color-flow revealed trace mitral regurgitation. Doppler and Color Flow revealed trace tricuspid regurgitation. Signed by : Charles Duncan MD Electronically Approved : 01/13/2021 16:55:09
== END ==
LOC: ECHO 14:58
PROVIDERS: ATTEND Internal Medicine Cardiovascular Disease
DX: I51.7 Cardiomegaly (principal); R07.89 Other chest pain
CPT/HCPCS: 93306